=== PATIENT | female | born 1990 | race Caucasian/White ===

== ENCOUNTER 2019-03-10 10:19 | Emergency (ER) | payer SELFPAY ==
[~2019-03-10] VITALS: Ht 170.2 cm; Wt 52.1 kg
[~2019-03-10 10:19] MED LIST: PENI500T PO; PRED20TA PO
[2019-03-10 10:35] VITALS: BP 147/72; PULSE 65; RESP 18; Ht 170.2 cm; Wt 52.1 kg
[2019-03-10] MEDS ORDERED: predniSONE 20 MG TAB PO ONE (12:30)
== END 2019-03-10 13:36 | disposition home or self-care (01) ==
LOC: FTE 10:19
DX: J02.0 Streptococcal pharyngitis (principal)
CPT/HCPCS: 81025; 87591; 87880; 99283; J7512